=== PATIENT | female | born 1945 | race Caucasian/White ===

== ENCOUNTER 2017-06-02 08:59 | Emergency (ER) | payer MEDICARE, OTHER ==
[~2017-06-02] VITALS: Ht 167.6 cm; Wt 72.6 kg
--- NOTE | ~2017-06-02 | EKG ---
[place], [place] ELECTROCARDIOGRAM REPORT NAME: RAUDEL MELCHOR UNIT #: [id number] ROOM: DOCTOR: ANABEL BARRIENTOS,HOANG BIRTHDATE: [birth year] DOS: 06/02/2017 TIME: 9:38 a.m. CONCLUSION: Normal sinus rhythm. HOANG LITTLE MD CM:EKGRPT:ELECTROCARDIOGRAM REPORT [id number] HOANG LITTLE MD
[~2017-06-02 08:59] MED LIST: ATENOLOL25 MG PO; BACTROBAN OINT22 GM T; CIPRO500 MG PO; CRESTOR40 MG PO; DEMEROL50 MG PO; FLAGYL500 MG PO; MOTRIN800 MG PO; NEXIUM40 MG PO; PAXIL30 MG PO; PRILOSEC40 MG PO; PROTONIX20 MG PO; TRAMADOL HCL50 MG PO; XANAX0.5 MG PO; ZOFRAN ODT4 MG SL
== END 2017-06-02 10:57 | disposition home or self-care (01) ==
LOC: ED 08:59
DX: R07.81 Pleurodynia (principal); Z88.7 Allergy status to serum and vaccine; Z88.8 Allergy status to other drugs, medicaments and biological substances; Z79.899 Other long term (current) drug therapy